=== PATIENT | female | born 1980 | race Hispanic/Latino ===

== ENCOUNTER → 2023-11-04 | Day surgery (SDC) | payer BC ==
[~2023-11-04] MED LIST: CALCIUM PO; FENTANYL CITRATE/PF 100MCG/2 ML INJ ONE; FOLIC ACID PO; IRON PO; LACTATED RINGER'S 1,000 ML ONE; LIDOCAINE HCL 2% LOCAL INJ 5 ML SDV VIAL INJ ONE; MELOXICAM7.5 MG PO; MIDAZOLAM HCL 2 MG/2 ML VIAL ONE; PANTOPRAZOLE SO40 MG PO; PROPOFOL IV EMULSION 10 MG/ML 20 ML VIAL ONE; VITAMIN D3 PO
[2023-11-04 17:17] VITALS: BP 118/80; PULSE 95; RESP 16; O2SAT 96
== END | disposition home or self-care (01) ==
LOC: OR 14:14
PROVIDERS: ATTEND Internal Medicine Gastroenterology
DX: K29.50 Unspecified chronic gastritis without bleeding (principal); K31.89 Other diseases of stomach and duodenum; K44.9 Diaphragmatic hernia without obstruction or gangrene; K21.9 Gastro-esophageal reflux disease without esophagitis; R19.7 Diarrhea, unspecified; E78.5 Hyperlipidemia, unspecified; F41.9 Anxiety disorder, unspecified; M06.9 Rheumatoid arthritis, unspecified; Z79.1 Long term (current) use of non-steroidal anti-inflammatories (NSAID)
CPT/HCPCS: 43239; 81025; J2001; J2250; J2704; J3010; J7121